=== PATIENT | female | born 1940 | race Hispanic/Latino ===

== ENCOUNTER 2022-12-13 05:58 | Day surgery (SDC) | payer OTHER ==
[2022-12-12 16:52] LABS: BASOPHILS # (AUTO) 0.02 K/uL (0.00-0.20); BASOPHILS % (AUTO) 0.3 % (0.0-5.0); EOSINOPHILS # (AUTO) 0.03 K/uL (0.00-0.70); EOSINOPHILS % (AUTO) 0.5 % (0.0-8.0); HEMATOCRIT 32.6 % (36-48); IMMATURE GRANULOCYTE ABSOLUTE 0.02 K/uL (0-1); LYMPHOCYTES # (AUTO) 1.8 K/uL (1.0-4.8); MEAN CORPUSCULAR HEMOGLOBIN 29.1 pg (27.0-33.0); MEAN CORPUSCULAR HGB CONC 33.4 g/dL (32.0-36.0); MEAN CORPUSCULAR VOLUME 87.2 fL (79-99); MONOCYTES # (AUTO) 0.7 K/uL (0.1-1.0); MONOCYTES % (AUTO) 11.5 % (3.0-13.0); NEUTROPHILS # (AUTO) 3.3 K/uL (1.8-7.7); NEUTROPHILS % (AUTO) 56.4 % (40.0-77.0); PLATELET COUNT (AUTO) 241 K/uL (130-400); RED BLOOD CELL COUNT(AUTO) 3.74 MIL/uL (4.00-5.50); RED CELL DISTRIBUTION WIDTH 13.8 % (11.0-15.5); WHITE BLOOD COUNT (AUTO) 5.8 K/uL (4.8-10.8)
[2022-12-12 16:57] LABS: APPEARANCE,URINE CLEAR (CLEAR); BILIRUBIN,URINE NEGATIVE (NEGATIVE); COLOR,URINE LIGHT-YELLOW (YELLOW); GLUCOSE, URINE (UA) NEGATIVE (NEGATIVE); KETONES,URINE NEGATIVE (NEGATIVE); LEUKOCYTE ESTERASE ,URINE 75 Leu/uL (NEGATIVE); NITRATE,URINE NEGATIVE (NEGATIVE); PROTEIN,URINE NEGATIVE (NEGATIVE); UROBILINOGEN,URINE 0.2 mg/dL (0.2-1.0)
[2022-12-12 16:58] LABS: ADD UA MICROSCOPIC YES
[2022-12-12 17:02] LABS: BACTERIA,URINE RARE /HPF (None Seen); MUCUS,URINE FEW LPF (None Seen); SQUAMOUS EPITHELIAL CELL,UR RARE /HPF (0-2)
[2022-12-12 17:04] LABS: CREATININE 0.7 mg/dL (0.5-1.5)
[2022-12-12 17:07] LABS: INR < 0.93 (0.85-1.15); PROTHROMBIN TIME 10.5 SEC (9.6-11.6)
[2022-12-12 17:09] LABS: PARTIAL THROMBOPLASTIN TIME 28.2 SEC (26.3-35.5)
[2022-12-12 17:17] VITALS: BP 174/78; PULSE 72; RESP 18
[2022-12-12 17:32] LABS: B-TYPE NATRIURETIC PEPTIDE 382 pg/mL (0-100)
[2022-12-13] VITALS (9 sets, daily range): BP systolic 115–156; BP diastolic 47–78; PULSE 64–77; RESP 14–17
[~2022-12-13] VITALS: Ht 154.9 cm; Wt 48.4 kg
[2022-12-13] MEDS ORDERED: 0.9%NACL 1000ML 1,000 ML IV ONE (06:43)
[2022-12-13] MEDS ORDERED: BIVALIRUDIN 250 MG/VIAL IV ONE (07:14)
[2022-12-13] MEDS ORDERED: FENTANYL CITRATE PF 50 MCG/1 ML 2ML VIAL ONE (07:14)
[2022-12-13] MEDS ORDERED: LIDOCAINE HCL 400MG/20ML VIAL ONE (07:14)
[2022-12-13] MEDS ORDERED: HEPARIN 10,000 UNIT/10ML (1,000 UNIT/ML) VIAL ONE (07:15)
[2022-12-13] MEDS ORDERED: IOHEXOL-350 50ML VIAL IV ONE (07:15)
[2022-12-13] MEDS ORDERED: MIDAZOLAM HCL 1 MG/ML 2ML VIAL ONE (07:15)
[2022-12-13] MEDS ORDERED: IOHEXOL 350 MG/ML 100ML INFUS..BTL IV ONE (07:15)
[2022-12-13] MEDS ORDERED: FAMOTIDINE 20MG VIAL IV ONE (08:33)
[2022-12-13] MEDS ORDERED: LABETALOL 20MG SYG IV ONE (09:21)
[2022-12-13] MEDS ORDERED: ONDANSETRON 4MG INJ ONE (10:04)
== END 2022-12-13 14:25 | disposition home or self-care (01) ==
LOC: DAH 05:58
PROVIDERS: ATTEND Internal Medicine Cardiovascular Disease
DX: I08.0 Rheumatic disorders of both mitral and aortic valves (principal); I11.0 Hypertensive heart disease with heart failure; I50.32 Chronic diastolic (congestive) heart failure; E03.9 Hypothyroidism, unspecified; E78.00 Pure hypercholesterolemia, unspecified; I25.2 Old myocardial infarction; Z79.899 Other long term (current) drug therapy; Z79.01 Long term (current) use of anticoagulants; Z90.49 Acquired absence of other specified parts of digestive tract; Z82.49 Family history of ischemic heart disease and other diseases of the circulatory system
CPT/HCPCS: 80048; 83880; 85025; 85610; 85730; 87088; 81001; 36415; 71045; 93005; 93460; C1769; C1894 ×3; C1760; C1893; J3490 ×2; J3010; J7030; J1644 ×3; J2250; J2405; Q9967; A4215; A4222; A4221; A4663; A4216; A4606; Q9965; A4223 ×3; 99156; 99157; J0583

== ENCOUNTER 2024-04-16 10:04 | Day surgery (SDC) | payer OTHER ==
--- NOTE | 2024-04-14 13:00 | EKG ---
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
[2024-04-14 13:09] VITALS: BP 186/80; PULSE 63; RESP 18; TEMP 97.4
[2024-04-14 13:09] LABS: BASOPHILS # (AUTO) 0.02 K/uL (0.00-0.20); BASOPHILS % (AUTO) 0.3 % (0.0-5.0); EOSINOPHILS # (AUTO) 0.02 K/uL (0.00-0.70); EOSINOPHILS % (AUTO) 0.3 % (0.0-8.0); HEMATOCRIT 34.3 % (36-48); IMMATURE GRANULOCYTE ABSOLUTE 0.02 K/uL (0-1); LYMPHOCYTES # (AUTO) 1.2 K/uL (1.0-4.8); LYMPHOCYTES % (AUTO) 19.9 % (21.0-51.0); MEAN CORPUSCULAR HEMOGLOBIN 28.6 pg (27.0-33.0); MEAN CORPUSCULAR HGB CONC 32.1 g/dL (32.0-36.0); MEAN CORPUSCULAR VOLUME 89.1 fL (79-99); MONOCYTES # (AUTO) 0.5 K/uL (0.1-1.0); MONOCYTES % (AUTO) 8.3 % (3.0-13.0); NEUTROPHILS # (AUTO) 4.2 K/uL (1.8-7.7); NEUTROPHILS % (AUTO) 70.9 % (40.0-77.0); PLATELET COUNT (AUTO) 218 K/uL (130-400); RED BLOOD CELL COUNT(AUTO) 3.85 MIL/uL (4.00-5.50); RED CELL DISTRIBUTION WIDTH 14.1 % (11.0-15.5); WHITE BLOOD COUNT (AUTO) 5.9 K/uL (4.8-10.8)
[2024-04-14 13:19] LABS: APPEARANCE,URINE CLEAR (CLEAR); BILIRUBIN,URINE NEGATIVE (NEGATIVE); COLOR,URINE LIGHT-YELLOW (YELLOW); GLUCOSE, URINE (UA) NEGATIVE (NEGATIVE); KETONES,URINE NEGATIVE (NEGATIVE); LEUKOCYTE ESTERASE ,URINE NEGATIVE Leu/uL (NEGATIVE); NITRATE,URINE NEGATIVE (NEGATIVE); OCCULT BLOOD,URINE NEGATIVE (NEGATIVE); PROTEIN,URINE NEGATIVE (NEGATIVE); UROBILINOGEN,URINE 0.2 mg/dL (0.2-1.0)
[2024-04-14 13:20] LABS: CREATININE 0.7 mg/dL (0.5-1.0)
[2024-04-14 13:24] LABS: INR <= 0.93 (0.85-1.15); PROTHROMBIN TIME 10.4 SEC (9.6-11.6)
[2024-04-14 13:25] LABS: PARTIAL THROMBOPLASTIN TIME 26.5 SEC (26.3-35.5)
[2024-04-14 13:48] LABS: B-TYPE NATRIURETIC PEPTIDE 523 pg/mL (0-100)
[2024-04-14 14:10] LABS: ADD UA MICROSCOPIC NO
--- NOTE | 2024-04-14 15:28 | HMCIMG ---
CHEST 1VW HISTORY: Preop COMPARISON: 03/10/2023 FINDINGS: A frontal projection of the chest was obtained. There may be mild left upper lung infiltrates. The heart is borderline enlarged. Prominent interstitial markings are seen. Degenerative changes are seen. Aortic calcifications are seen. IMPRESSION: 1. There may be mild left upper lung infiltrates.
--- NOTE | 2024-04-15 15:22 | NUR ---
REPORT REPORTED CXR AND BNP TO LEE SCALES NP ON 04/14/24. OK TO PROCEED
[~2024-04-16] VITALS: Ht 154.9 cm; Wt 44.5 kg
[2024-04-16] VITALS (9 sets, daily range): BP systolic 97–177; BP diastolic 45–74; PULSE 65–86; RESP 13–16; TEMP 97.8–97.9
[~2024-04-16 10:04] MED LIST: ASPI-1443 PO; ATOR10TA69 PO; ESOM40CA66 PO; FAMO-290 PO; FURO20TA6 PO; LEVO50CA4 PO; METO25TA6 PO; NACL1 PO; OLME20TA68 PO; ONDA-243 PO; POLY17PO4 PO; TRAZ-185 PO; vit d PO
[2024-04-16] MEDS ORDERED: HEParin-NS 1,000 UNIT/500 ML 1,000 ML IV ONE (15:12)
[2024-04-16] MEDS ORDERED: LIDOCAINE HCL 400MG/20ML VIAL ONE (15:12)
[2024-04-16] MEDS ORDERED: IOHEXOL-350 75 ML VIAL IV ONE (15:13)
[2024-04-16] MEDS ORDERED: NITROGLYCERIN 50MG VIAL ONE (15:13)
[2024-04-16] MEDS ORDERED: FENTanyl CITRate PF 50 MCG/1 ML 2ML VIAL ONE (15:45)
[2024-04-16] MEDS ORDERED: MIDAZOLAM HCL 1 MG/ML 2ML VIAL ONE (15:46)
[2024-04-16] MEDS ORDERED: IOHEXOL-350 50ML VIAL IV ONE (15:52)
[2024-04-16] MEDS ORDERED: hydrALAZine 20MG/ML VIAL ONE (16:23)
[2024-04-16] MEDS ORDERED: LAbetaLOL 20MG VIAL ONE (16:42)
--- NOTE | 2024-04-16 17:54 | PRN ---
DATE OF PROCEDURE: 04/16/2024 PROCEDURE PERFORMED: LEFT HEART CATHETERIZATION, LEFT AND RIGHT SELECTIVE CORONARY ANGIOGRAMS, RIGHT COMMON FEMORAL ANGIOGRAM, PERCLOSE SUTURE CLOSURE OF THE RIGHT COMMON FEMORAL ARTERY, AND CONSCIOUS SEDATION VIRTUAL OFFICE ASSISTANT: ROBER VILLARREAL MD, [facility] INDICATION: SEVERE MITRAL AND AORTIC STENOSIS, WITH NEED FOR REPEAT CORONARY ANGIOGRAPHY. PROCEDURE NOTE: After informed consent was obtained the patient was prepped and draped in the usual sterile fashion. A 6 Setswana arterial sheath was inserted in the right femoral artery using a micropuncture technique with ultrasound guidance. This was performed after fluoroscopic identification of bony landmarks to facilitate a more accurate puncture of the right common femoral artery. The arterial sheath was aspirated and flushed. A 6 Setswana pigtail catheter was then advanced over a J-tipped guidewire to the ascending aorta and was used for an aortic root injection. Previously she had been documented to have severe aortic stenosis and we elected not to repeat right and left heart catheterization. A 6F JL-4 was then advanced to the ascending aorta over a J-tipped guidewire, was aspirated and flushed, and was used for selective left coronary angiograms in multiple obliquities. A 6F JR-4 was advanced in a similar fashion to the ascending aorta over a J-tipped guidewire and was used for selective right coronary angiograms in multiple obliquities with findings as outlined below. A right common femoral angiogram was performed to assess suitability for Perclose suture closure and the Perclose device was deployed in standard fashion. Perclose suture closure was successful without bleeding or hematoma. The patient tolerated the procedure well and was returned to the holding area in stable condition. FINDINGS: LEFT HEART HEMODYNAMICS: The LV was not entered. LEFT VENTRICULOGRAM: The LV was not entered. CORONARY ANGIOGRAM: LEFT MAIN: The left main coronary artery was normal. LEFT ANTERIOR DESCENDING: The LAD was tortuous distally. There was a 50% mid LAD stenosis just distal to the bifurcation of the 1st diagonal. The 1st diagonal had a 60% stenosis. The ongoing distal LAD was tortuous but free of any stenosis. LEFT CIRCUMFLEX: The left circumflex was nondominant and normal as were the obtuse marginal branches. RAMUS INTERMEDIATE BRANCH: There was no ramus intermediate branch. RIGHT CORONARY ARTERY: The RCA was dominant and normal as were the PDA and posterolateral ventricular branches. IMPRESSION: Repeat coronary angiography in this patient with known severe aortic stenosis and severe mitral stenosis by cardiac catheterization 12/13/2022 due to delay in proceeding with surgery, with need for reassessment of coronaries. Severe aortic stenosis with aortic valve area of 0.5 cm2 by right and left heart catheterization 12/13/2022. Severe mitral stenosis with mitral valve area of 1.0 to 1.3 cm2 by right and left heart catheterization 12/13/2022 with severe mitral annular calcification. Single-vessel coronary artery disease with 50% mid LAD stenosis and 60% ostial diagonal one stenosis, with otherwise normal coronaries. Reassessment of LV function by 2D echocardiogram RECOMMENDATION: Proceed with evaluation for minimally invasive cardiac surgery feasible. COMPLICATIONS OF PROCEDURE: None, the patient tolerated the procedure well and was returned to her room in stable condition. HEMOSTASIS: Perclose suture closure was successful without bleeding or hematoma. ESTIMATED BLOOD LOSS: Less than 10 mL. CONTRAST TOTAL: 95 mL. ROBER VILLARREAL MD Apr 16, 2024 17:54
[2024-04-16] MEDS: ondanSETRON 4MG INJ IVP PRN (18:18)
[2024-04-16] MEDS: ondanSETRON 4MG INJ ONE (18:18)
== END 2024-04-16 20:05 | disposition home or self-care (01) ==
LOC: DAH 10:04
PROVIDERS: ATTEND Internal Medicine Cardiovascular Disease
DX: I08.0 Rheumatic disorders of both mitral and aortic valves (principal); I11.0 Hypertensive heart disease with heart failure; I50.32 Chronic diastolic (congestive) heart failure; I25.10 Atherosclerotic heart disease of native coronary artery without angina pectoris; R07.9 Chest pain, unspecified; E03.9 Hypothyroidism, unspecified; E87.1 Hypo-osmolality and hyponatremia; E78.00 Pure hypercholesterolemia, unspecified; E66.9 Obesity, unspecified; Z79.82 Long term (current) use of aspirin; Z88.0 Allergy status to penicillin; Z91.048 Other nonmedicinal substance allergy status; Z68.1 Body mass index [BMI] 19.9 or less, adult; Z79.899 Other long term (current) drug therapy
CPT/HCPCS: 80048; 83880; 85025; 85610; 85730; 81003; 36415; 71045; 93005; 93454; 93567; C1894 ×2; C1760; Q9965; J3010; J3490 ×3; J0360; J2250; J2405; J1644; Q9967 ×2; A4215; A4222; A4221; A4663; A4216; A4606; A4223 ×3; 99156; 99157